=== PATIENT | female | born 1980 | race Caucasian/White ===

== ENCOUNTER → 2017-07-19 | Outpatient (CLI) | payer BC ==
--- NOTE | 2017-07-19 22:13 | US ---
EXAM DESCRIPTION: Breast,Bilateral: Ultrasound CLINICAL HISTORY: 36 yearsFemaleBREAST LUMP inferior left breast. 830 clock position. Not palpable at this time. COMPARISON: Digital 3-D tomosynthesis bilateral breast on this visit. TECHNIQUE: Transcutaneous scanning of the bilateral breasts utilizing two-dimensional and Doppler modes. Scanning performed by the audio visual director and Dr. Reeves. Skin marker at the 830 clock position of the middle third of the left breast. FINDINGS: Scanning of the 1000 clock position of the right breast 7 cm from the nipple. Predominantly fatty heterogeneous tissue with scattered fibroglandular areas. 4.7 mm hypoechoic nodule with parallel orientation and mixed posterior features. Central echogenicity, most likely a lymph node. No discrete solid mass or cyst. No skin changes or parenchymal edema.. No large calcifications. Normal Doppler signature. Scanning of the 200 clock position of the left breast 7 cm from the nipple. Predominantly fatty heterogeneous tissue with scattered fibroglandular areas. No discrete solid mass or cyst. No skin changes or parenchymal edema.. No large calcifications. Normal Doppler signature. Scanning of the 830 clock position of the middle third of the left breast around the skin marker. Predominantly fatty heterogeneous tissue with scattered fibroglandular areas. No discrete solid mass or cyst. No skin changes or parenchymal edema. No large calcifications. Normal Doppler signature.. IMPRESSION: 1. Bi-Rads Category 2: Benign. 2. Please refer to 3-D tomosynthesis bilateral diagnostic mammographic examination and report on this visit. The FINDINGS and the follow-up plan were reviewed in person with the patient after the examination. Written communication explaining the IMPRESSION and follow-up will be mailed to the patient and referring care provider. Electronically signed by: Piter Reeves MD 07/19/2017 10:12 PM [facility] Workstation: [id number]
--- NOTE | 2017-07-20 11:27 | MAM ---
EXAM DESCRIPTION: 3D Diagnostic, Bilateral: Digital Mammography CLINICAL HISTORY: 36 yearsFemaleBREAST MASS . Patient felt on the lower inner quadrant of the left breast, but not today. Unknown remote family history of breast cancer due to lack of medical record keeping in [facility]. No immediate family history. COMPARISON: prior. No prior reports available. . Bilateral targeted breast ultrasound following this examination. TECHNIQUE: Bilateral CC LM MLO projection full-field images, 3-D tomosynthesis digital mammographic technique. Also bilateral synthesized CC MLO LM full-field images. CAD not utilized. FINDINGS: The breast parenchymal density pattern is: Heterogeneously dense breast tissue, which may obscure small masses. No skin thickening or nipple retraction skin marker on the skin surface of the lower inner quadrant of the middle third of the left breast at the 830 clock position. No mammographic abnormalities. Focal asymmetry in the upper outer quadrant of the middle third of both breasts at the 200 clock position of the right breast 8 cm of the nipple in the 200 clock position of the left breast, 7 cm from the nipple. No focal, stellate mass or density, , and no suspicious microcalcifications bilaterally. ULTRASOUND: Scanning of the 1000 clock position of the right breast 7 cm from the nipple. Predominantly fatty heterogeneous tissue with scattered fibroglandular areas. 4.7 mm hypoechoic nodule with parallel orientation and mixed posterior features. Central echogenicity, most likely a lymph node. No discrete solid mass or cyst. No skin changes or parenchymal edema.. No large calcifications. Normal Doppler signature. Scanning of the 200 clock position of the left breast 7 cm from the nipple. Predominantly fatty heterogeneous tissue with scattered fibroglandular areas. No discrete solid mass or cyst. No skin changes or parenchymal edema.. No large calcifications. Normal Doppler signature. Scanning of the 830 clock position of the middle third of the left breast around the skin marker. Predominantly fatty heterogeneous tissue with scattered fibroglandular areas. No discrete solid mass or cyst. No skin changes or parenchymal edema. No large calcifications. Normal Doppler signature.. IMPRESSION: BI-RADS CATEGORY: 2 - BENIGN FINDINGS. FOLLOW UP: Routine digital bilateral screening, at age 40. Repeat diagnostic breast imaging can be performed based upon significant clinical findings, before age 40. The FINDINGS and the FOLLOW-UP plan were reviewed in person with the patient after the examination. Written communication explaining the IMPRESSION and FOLLOW-UP will be mailed to the patient and referring care provider. According to the [employer], yearly mammograms are recommended starting at age 40 and continuing as long as a woman is in good health. Any breast change noted on a breast self-exam should be reported promptly to the patient's healthcare provider. Breast MRI is recommended for women with an approximately 20-25% or greater lifetime risk of breast cancer, including women with a strong family history of breast or ovarian cancer and women who have been treated for Hodgkin's disease. A negative mammographic report should not delay tissue diagnosis in patients with significant clinical history or physical findings. Extremely dense breast tissue limits the sensitivity of digital mammography. Electronically signed by: Piter Reeves MD 07/20/2017 11:26 AM [facility]
== END ==
LOC: MAMMO 12:03
PROVIDERS: ATTEND Nurse Practitioner Family
DX: N63.20 Unspecified lump in the left breast, unspecified quadrant (principal)
CPT/HCPCS: 76641; 77066; G0279